=== PATIENT | female | born 1970 | race Caucasian/White ===

== ENCOUNTER → 2017-02-05 | Outpatient (CLI) | payer MEDICARE, MEDICAID ==
[~2017-02-05] MED LIST: ALLERGY SYRING1 EAC3 SQ; AMITIZA24 MCG PO; COZAAR DPS50 MG PO; DULERA 200/58.8 GM IH; DUONEB DPS3 ML IH; ESTRADIOL1 MG PO; HYDROCODON-ACE1 EAC6 PO; KEFLEX-DPS500 MG PO; LEVOTHYROXINE25 MCG PO; MIRALAX PACKET17 GM PO; MONTELUKAST SOD10 MG PO; NYSTATIN1 EAC2 TP; OXY IR DPS10 MG PO; PROAIR RESPICL90 MCG IH; SOMA-DPS350 MG PO; SPIRIVA RESPIMAT4 G1 IH; TOPIRAMATE100 MG PO; VOLTAREN75 MG PO; XANAX2 MG PO; XOLAIR150 MG SQ
== END | disposition home or self-care (01) ==
LOC: PTH.S 12:48
DX: Z01.812 Encounter for preprocedural laboratory examination (principal); I10 Essential (primary) hypertension; Z79.52 Long term (current) use of systemic steroids

== ENCOUNTER 2017-02-10 05:52 | Observation (INO) | payer MEDICARE, MEDICAID ==
[~2017-02-10] VITALS: Ht 167.6 cm; Wt 84.5 kg
[2017-02-12] MEDS ORDERED: TOPIRAMATE100 MG PO (06:42)
[2017-02-12] MEDS ORDERED: OXY IR DPS10 MG PO (06:42)
[2017-02-12] MEDS ORDERED: AMITIZA24 MCG PO (06:43)
[2017-02-12] MEDS ORDERED: COZAAR DPS50 MG PO (06:43)
[2017-02-12] MEDS ORDERED: XANAX2 MG PO (06:43)
[2017-02-12] MEDS ORDERED: MONTELUKAST SOD10 MG PO (06:44)
[2017-02-12] MEDS ORDERED: PROAIR RESPICL90 MCG IH (06:44)
[2017-02-12] MEDS ORDERED: SOMA-DPS350 MG PO (06:44)
[2017-02-12] MEDS ORDERED: MIRALAX PACKET17 GM PO (06:44)
[2017-02-12] MEDS ORDERED: LEVOTHYROXINE25 MCG PO (06:44)
[2017-02-12] MEDS ORDERED: DULERA 200/58.8 GM IH (06:45)
[2017-02-12] MEDS ORDERED: ESTRADIOL1 MG PO (06:45)
[2017-02-12] MEDS ORDERED: VOLTAREN75 MG PO (06:45)
[2017-02-12] MEDS ORDERED: NYSTATIN1 EAC2 TP (06:46)
[2017-02-12] MEDS ORDERED: SPIRIVA RESPIMAT4 G1 IH (06:46)
[2017-02-12] MEDS ORDERED: HYDROCODON-ACE1 EAC6 PO (06:47)
[2017-02-12] MEDS ORDERED: XOLAIR150 MG SQ (06:47)
[2017-02-12] MEDS ORDERED: ALLERGY SYRING1 EAC3 SQ (06:48)
[2017-02-12] MEDS ORDERED: DUONEB DPS3 ML IH (06:49)
[2017-02-12] MEDS ORDERED: KEFLEX-DPS500 MG PO (08:47)
--- NOTE | 2017-02-22 12:43 | OR ---
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 PROCEDURE PERFORMED: Panniculectomy. FOREST TECHNICIAN: TERRELL Nogueira ANESTHESIA: General endotracheal. ESTIMATED BLOOD LOSS: Approximately 100 mL. SPECIMEN: Abdominal wall pannus to Pathology, it is 7.25 pounds. DESCRIPTION OF PROCEDURE: After appropriate informed consent was obtained, the patient was brought to the operating room. General endotracheal anesthesia was induced. The patient's abdomen was prepped and draped in a sterile fashion. I had marked out the area of incision in the preop area with the patient standing. The inferior incision was created first from anterior superior iliac spine from one side to the next along the lower abdomen coming across part of the mons pubis to include some of the excess skin and fat that was there. This was carried deep with cautery down onto the fascia. I started excising and lifting the abdominal skin and pannus off the abdominal wall. Where scar was, things were obviously pretty stuck down, but I was able to carve that skin off that area. Dissection was carried up to the level of the umbilicus. In order to get the skin down nice and tight, I did have to sacrifice the umbilicus and she in fact wanted her umbilicus gone, it was the source of problems for her, recurrent infections and fungal infections given the depth of the umbilicus and how it hung down. So, when I had the dissection along the abdominal wall completed, I then made an incision just ADMIT: 02/10/2017 RM/LOC: Cy [facility] MR#: [id number] [address] [address] ELIZABETH VIANEY Simeon [address] [place] [address] Operative/Delivery Room Report SEX: F AGE: 46 : 1970 above the umbilicus from side to side, taking the abdominal pannus off. This was weighed and it weighed 7.25 pounds. The wound was then copiously irrigated out, everything appeared hemostatic. A couple of 15-Serbian round Víctor drains were placed. The skin was then temporarily reapproximated with skin abdirizak. It came together nicely. The skin was then further closed with 2-0 PDS sutures in the dermal layer and then skin abdirizak in the skin. The drains were sewn in place, placed to bulb suction. The patient tolerated the procedure well and was taken to the recovery room in stable condition. TERRELL Nogueira, assisted in this entire procedure. His help was necessary for retraction during this dissection. Jc Lion MD/ fuad JOB #: [id number] CC: Jc Lion MD, Attending Physician Karyn Farnsworth MD, Family Physician Karyn Farnsworth MD
== END 2017-02-11 11:25 | disposition home or self-care (01) ==
LOC: WOR 05:52 → 6PED 09:38
PROVIDERS: ADMIT Surgery
PROC: 0J080ZZ Alteration of Abdomen Subcutaneous Tissue and Fascia, Open Approach (ICD-10-PCS; principal; 2017-02-10)
DX: E65 Localized adiposity (principal); J45.909 Unspecified asthma, uncomplicated; I10 Essential (primary) hypertension; M19.90 Unspecified osteoarthritis, unspecified site; F41.9 Anxiety disorder, unspecified; E03.9 Hypothyroidism, unspecified; Z90.49 Acquired absence of other specified parts of digestive tract; Z98.890 Other specified postprocedural states; Z79.899 Other long term (current) drug therapy

== ENCOUNTER 2017-03-26 23:07 | Emergency (ER) | payer MEDICARE, MEDICAID ==
--- NOTE | 2017-03-30 19:04 | ER ---
ADMIT: 03/26/2017 RM/LOC: ER [facility] MR#: [id number] [address] [address] ELIZABETH VIANEY Simeon [address] [address] Emergency Room Report SEX: F AGE: 47 : 1970 DATE: 03/26/2017 HISTORY OF PRESENT ILLNESS: The patient is a 47-year-old female with past medical history of asthma, came to the ER with chief complaint of recent upper respiratory tract infection and increased cough and shortness of breath. The patient states that she used albuterol inhaler at home, which did not resolve the symptoms. PHYSICAL EXAMINATION: GENERAL: The patient was in no pain, and had very mild respiratory distress. VITAL SIGNS: In the ER, the patient was afebrile, the patient was mildly tachycardic and tachypneic. HEAD and NECK: Negative. Normal examination. CHEST: Mild bilateral wheezing without any crackles. HEART: Normal heart sounds. ABDOMEN: Soft. EMERGENCY ROOM COURSE: The patient received DuoNeb nebulizer twice and received prednisone p.o., which resolved the symptoms significantly. The patient was re-examined and did not show any crackles. The patient was discharged to home with return precautions, follow up with the primary doctor as needed and with diagnoses of asthma, upper respiratory tract infection. Carl Arambula MD/ fuad JOB #: [id number] CC: Carl Arambula MD, Attending Physician Karyn Farnsworth MD, Family Physician
== END 2017-03-27 00:44 | disposition home or self-care (01) ==
LOC: ER 23:07
DX: J06.9 Acute upper respiratory infection, unspecified (principal); J45.909 Unspecified asthma, uncomplicated; F31.9 Bipolar disorder, unspecified; Z79.51 Long term (current) use of inhaled steroids; Z90.49 Acquired absence of other specified parts of digestive tract

== ENCOUNTER → 2017-07-08 | Outpatient (CLI) | payer MEDICARE, MEDICAID | END | disposition home or self-care (01) | LOC: RAD.S 10:23 | DX: M54.5 Low back pain (principal); M48.07 Spinal stenosis, lumbosacral region; M51.86 Other intervertebral disc disorders, lumbar region; M12.88 Other specific arthropathies, not elsewhere classified, other specified site; G89.29 Other chronic pain ==